=== PATIENT | male | born 1960 | race Caucasian/White ===

== ENCOUNTER 2020-08-18 07:13 | Outpatient (NON) | payer BC, SELFPAY ==
[2020-08-19 13:35] LABS: SARS-CoV-2 RNA PCR Negative
== END 2020-08-18 07:14 ==
LOC: ANHCOVIDDT 07:13
PROVIDERS: PCP Family Medicine; Visit Provider Family Medicine
DX: Z20.828 Contact with and (suspected) exposure to other viral communicable diseases (principal); R50.9 Fever, unspecified; R51.9 Headache, unspecified
CPT/HCPCS: 87635; C9803; U0003

== ENCOUNTER 2020-08-18 07:13 | Outpatient (NON) | payer BC, SELFPAY ==
[2020-08-18 14:26] LABS: Influenza Control Positive
== END 2020-08-18 07:14 ==
LOC: ANHCOVIDDT 07:13
PROVIDERS: PCP Family Medicine; Visit Provider Family Medicine
DX: R51.9 Headache, unspecified (principal); R50.9 Fever, unspecified
CPT/HCPCS: 87804

== ENCOUNTER 2020-08-23 16:56 | Emergency (ER) | payer BC, SELFPAY ==
[2020-08-23 17:58] VITALS: BP 192/65; PULSE 75; RESP 16; TEMP 36.6; O2SAT 98
[2020-08-23 18:42] LABS: Anion Gap 6 mmol/L (8-16); Blood Urea Nitrogen 20 mg/dL (9-20); Carbon Dioxide 36 mmol/L (22-30); Chloride 97 mmol/L (98-107); Estimated CRCL calculation 70 ml/min; Estimated Glomerular Filt Rate 48; Glucose 185 mg/dL (75-110); Potassium 3.6 mmol/L (3.4-5.0); Sodium 139 mmol/L (137-145)
[2020-08-23 19:01] LABS: Basophils Percent Auto 0.4 % (0.2-1.2); Eosinophils Absolute Auto 0.2 K/mm3 (0-0.3); Eosinophils Percent Auto 2.3 % (0-4.4); Hematocrit 40.5 % (42.0-52.0); Hemoglobin 13.5 g/dL (14.0-18.0); Immature Granulocyte Absolute 0.13 K/mm3 (0.00-0.031); Immature Granulocyte Percent A 1.4 % (0-0.5); Lymphocytes Absolute Auto 1.14 K/mm3 (0.9-3.2); Lymphocytes Percent Auto 12.4 % (18.3-44.2); Mean Corpuscular HGB Conc 33.3 g/dl (32-36); Mean Corpuscular Hemoglobin 29.1 pg (26-34); Mean Corpuscular Volume 87.3 fl (80-100); Mean Platelet Volume 10.3 fl (7.4-10.4); Monocytes Absolute Auto 0.8 K/mm3 (0.1-0.6); Monocytes Percent Auto 8.5 % (2.6-8.5); Neutrophils Absolute Auto 6.9 K/mm3 (1.3-6.7); Platelet Count Result 398 k/mm3 (150-375); Red Blood Count 4.64 M/mm3 (4.6-6.20); Red Cell Distribution Width 13.3 % (11.5-14.5); White Blood Count 9.2 K/mm3 (4.5-10.0)
[2020-08-23] MEDS: HYDROcodone/acetaminophen (*CRX) 5-325 MG TABLET 1 TAB PO (21:46)
[2020-08-23 22:06] LABS: D Dimer 1.66 ug/mL (<0.48)
[2020-08-23 22:14] VITALS: BP 184/89; PULSE 86; RESP 16; O2SAT 98
[2020-08-23] MEDS: ENOXAPARIN 120 MG/0.8 ML SYRINGE 136 MG SUB-Q (22:35)
--- NOTE | 2020-08-23 22:40 | ED.GENADULT ---
HPI - General Adult General Chief complaint: Extremity Problem,Nontraumatic Stated complaint: r leg swelling Time Seen by Provider: 08/23/20 20:57 History of Present Illness HPI narrative: Patient is a 60-year-old male who presents ER with right lower extremity edema. Increased over the last 2 to 3 days. Has increased in redness and warmth as well. Mildly tender. Reports he had a fever last week and was Covid negative. He has not been having persistent fever since then. No breaks in skin to his lower extremity. He has no chest pain or shortness of breath. No previous surgeries. No recent prolonged immobilization or surgery. Related Data Home Medications Medication Instructions Recorded Confirmed alpha lipoic acid 200 mg capsule mg PO 11/01/19 aspirin 81 mg tablet,delayed 81 mg PO DAILY 11/01/19 release diltiazem HCl 300 mg capsule,24 300 mg PO DAILY 11/01/19 hr,extended release insulin lispro 100 unit/mL See Rx Instructions SUB-Q 11/02/19 subcutaneous solution USEASDIRECTD hydrochlorothiazide 25 mg tablet 25 mg PO DAILY 03/09/20 Allergies Allergy/AdvReac Type Severity Reaction Status Date / Time No Known Allergies Allergy Verified 03/09/20 15:48 Review of Systems Review of Systems: All systems reviewed & are unremarkable except as noted in HPI and below Constitutional: Constitutional: Denies chills, Reports fever(s) and Denies weakness ENT: Denies nasal congestion and Denies sore throat Cardiovascular: Cardiovascular: Denies chest pain Respiratory: Respiratory: Denies cough and Denies dyspnea Musculoskeletal: Comments: Right lower extremity edema Integumentary/Breasts: Skin/Breast: Reports erythema PMFSH Past Medical History Medical History (Updated 08/23/20 @ 22:54 by Sunil Durbin MD) CKD (chronic kidney disease) Diabetes Dyslipidemia Hypertension Family History Family History Mother Family history of elevated blood lipids Other Family history of cardiovascular disease Family history of hypercholesterolemia Hypertension Social History Social History Smoking status: Never smoker Smoking end date: 10/13/02 Alcohol intake: current Exam Narrative: Exam Narrative: GENERAL: Well-appearing, well-nourished, and in no acute distress. HEAD: Normocephalic, atraumatic. CHEST: Clear to auscultation. No respiratory distress. HEART: Regular rate and rhythm. Normal peripheral pulses. EXTREMITIES: Normal range of motion. 2+ edema right lower extremity when compared to the left. SKIN: Warm, dry, red and warm right lower extremity proximal to the ankle and distal to the knee. NEURO: Alert and oriented x3. PSYCH: Normal mood and affect. Course Course Emergency Course: Patient given Lovenox x1 here. Has been scheduled for lower extremity ultrasound tomorrow morning. Discussed with Dr. French who is net web application developer for pts PCP. They will follow up results and rx anticoagulation if needed. Will d/c with abx to cover for cellulitis. Vital Signs Vital signs: Vital Signs Temperature 98 F 08/23/20 17:58 Pulse Rate 75 08/23/20 17:58 Respiratory Rate 16 08/23/20 17:58 Blood Pressure 192/65 H 08/23/20 17:58 Pulse Oximetry 98 08/23/20 17:58 Temperature 98 F 08/23/20 17:58 Pulse Rate 86 08/23/20 22:14 Respiratory Rate 16 08/23/20 22:14 Blood Pressure 184/89 H 08/23/20 22:14 Pulse Oximetry 98 08/23/20 22:14 Medical Decision Making Vital Signs Vital Signs: Vital Signs Temperature 98 F 08/23/20 17:58 Pulse Rate 75 08/23/20 17:58 Respiratory Rate 16 08/23/20 17:58 Blood Pressure 192/65 H 08/23/20 17:58 Pulse Oximetry 98 08/23/20 17:58 Temperature 98 F 08/23/20 17:58 Pulse Rate 86 08/23/20 22:14 Respiratory Rate 16 08/23/20 22:14 Blood Pressure 184/89 H 08/23/20 22:14 Pulse Oximetry 98 08/23/20
[2020-08-23 23:04] VITALS: BP 178/94; PULSE 87; RESP 18; TEMP 36.9; O2SAT 97
[2020-08-23] MEDS: CEPHALEXIN 500 MG CAPSULE PO (23:04)
== END 2020-08-23 23:05 | disposition home or self-care (01) ==
PROVIDERS: Emergency Medicine; Emergency Provider Emergency Medicine; PCP Family Medicine
DX: L03.115 Cellulitis of right lower limb (principal); R60.0 Localized edema; Z79.82 Long term (current) use of aspirin; Z79.4 Long term (current) use of insulin; E11.22 Type 2 diabetes mellitus with diabetic chronic kidney disease; I12.9 Hypertensive chronic kidney disease with stage 1 through stage 4 chronic kidney disease, or unspecified chronic kidney disease; N18.9 Chronic kidney disease, unspecified; E78.5 Hyperlipidemia, unspecified
CPT/HCPCS: 36415; 80048; 85025; 85380; 96372; 99283; A9270; J1650

== ENCOUNTER 2020-08-24 06:57 | Outpatient (CLI) | payer BC, SELFPAY ==
--- NOTE | ~2020-08-24 | US_ITS ---
EXAMINATION: US venous doppler LE RT EXAM DATE: 08/24/2020 07:32 INDICATION: Right leg edema. TECHNIQUE: Multiple grayscale, color flow and Doppler images of the right lower extremity deep venous system were obtained and reviewed. There is no prior study for comparison. FINDINGS: The right common femoral, femoral and profunda veins demonstrate normal color flow, respira tory variation, augmentation and compressibility. Compressibility, color flow confirmed within the r ight popliteal, posterior tibial, peroneal, and greater saphenous veins. IMPRESSION: 1. No right lower extremity deep venous thrombosis. Reviewed, dictated and finalized at location A. L MANAGER
== END 2020-08-24 06:58 | disposition home or self-care (01) ==
PROVIDERS: PCP Family Medicine; Visit Provider Family Medicine
DX: R60.0 Localized edema (principal)
CPT/HCPCS: 93971

== ENCOUNTER 2021-10-15 00:10 | Day surgery (SDC) | payer BC, SELFPAY ==
[2021-10-08 10:38] VITALS: BMI 39.5
--- NOTE | 2021-10-10 17:13 | PM.HPGS ---
History of Present Illness History of Present Illness Consent: Risks, benefits, and alternatives have been discussed and questions answered. Patient agrees to proceed with procedure. Chief complaint: neoplasm screening Narrative: Bashir Dodson is a 61 year old male referred for colon cancer screening Review of Systems Review of Systems: All systems reviewed & are unremarkable except as noted in HPI and below PMFSH Past Medical History Medical History CKD (chronic kidney disease) Diabetes Dyslipidemia Hepatitis C antibody test negative (08/04/21) Hypertension Family History Family History Mother Family history of elevated blood lipids Other Family history of cardiovascular disease Family history of hypercholesterolemia Hypertension Social History Social History Smoking status: Former smoker Tobacco type: cigarettes Smoking end date: 10/13/02 Alcohol intake: current Alcohol use details: Varies Living arrangements: with family Spiritual care concerns: No Meds Home Medications and Allergies Home Medications Medication Instructions Recorded Confirmed Type alpha lipoic acid 200 mg capsule 200 mg PO BID 11/01/19 10/08/21 History aspirin 81 mg tablet,delayed 81 mg PO DAILY 11/01/19 10/08/21 History release diltiazem HCl 300 mg capsule,24 300 mg PO DAILY 11/01/19 10/08/21 History hr,extended release hydrochlorothiazide 25 mg tablet 25 mg PO DAILY 03/09/20 10/08/21 History blood sugar diagnostic 07/30/21 07/30/21 History ezetimibe 10 mg-simvastatin 20 mg 1 tablet PO DAILY #90 tablet 07/30/21 10/08/21 Rx tablet insulin lispro 100 unit/mL See Rx Instructions SUB-Q 07/30/21 10/08/21 History subcutaneous solution USEASDIRECTD mecobalamin (vitamin B12) 1,000 500 mcg PO DAILY tablet 07/30/21 10/08/21 History mcg chewable tablet ramipril 10 mg capsule 10 mg PO DAILY #90 cap 07/30/21 10/08/21 Rx dapagliflozin [Farxiga] 5 mg PO DAILY 10/08/21 10/08/21 History levothyroxine 200 mcg PO DAILY 10/08/21 10/08/21 History Allergies Allergy/AdvReac Type Severity Reaction Status Date / Time No Known Allergies Allergy Verified 10/15/21 06:59 Exam Const: Nutritional Appearance: obese Resp: Auscultation: clear to auscultation bilaterally Cardio: Rate: regular rate Rhythm: regular rhythm GI: GI Palp: Yes Soft to palpation and No Tenderness to palpation present (GI) Assessment and Plan Assessment and plan (1) Colon cancer screening: Code(s): Z12.11 - Encounter for screening for malignant neoplasm of colon Status: Acute Assessment and Plan: Colonoscopy with possible biopsy or polypectomy or cautery or injection of substances.
[2021-10-15 07:00] VITALS: BP 178/77; PULSE 80; RESP 20; TEMP 36.3; O2SAT 96
[2021-10-15] MEDS: LACTATED RINGERS 1,000 ML 150 ML IV CONT (07:16)
--- NOTE | 2021-10-15 07:26 | WPDANESEPPF ---
Anes - Initial Pre Proc Eval Procedure: Operation Date: 10/15/21 08:00 Proposed Procedures p Screening Colonoscopy - Robert Byrd MD Date/Time: 10/15/21 07:26 Surgeon: Robert Byrd MD Pre Op Diagnosis: neoplasm screening Patient Data Age: 61 Gender: M Height: 1.85 m Weight: 145 kg Last Vital Signs Temp 36.3 C L 10/15/21 07:00 Pulse 80 10/15/21 07:00 Resp 20 10/15/21 07:00 BP 178/77 H 10/15/21 07:00 Pulse Ox 96 10/15/21 07:00 Allergies Allergy/AdvReac Type Severity Reaction Status Date / Time No Known Allergies Allergy Verified 10/15/21 06:59 Home Medications Medication Instructions Recorded Confirmed Type alpha lipoic acid 200 mg capsule 200 mg PO BID 11/01/19 10/08/21 History aspirin 81 mg tablet,delayed 81 mg PO DAILY 11/01/19 10/08/21 History release diltiazem HCl 300 mg capsule,24 300 mg PO DAILY 11/01/19 10/08/21 History hr,extended release hydrochlorothiazide 25 mg tablet 25 mg PO DAILY 03/09/20 10/08/21 History blood sugar diagnostic 07/30/21 07/30/21 History ezetimibe 10 mg-simvastatin 20 mg 1 tablet PO DAILY #90 tablet 07/30/21 10/08/21 Rx tablet insulin lispro 100 unit/mL See Rx Instructions SUB-Q 07/30/21 10/08/21 History subcutaneous solution USEASDIRECTD mecobalamin (vitamin B12) 1,000 500 mcg PO DAILY tablet 07/30/21 10/08/21 History mcg chewable tablet ramipril 10 mg capsule 10 mg PO DAILY #90 cap 07/30/21 10/08/21 Rx dapagliflozin [Farxiga] 5 mg PO DAILY 10/08/21 10/08/21 History levothyroxine 200 mcg PO DAILY 10/08/21 10/08/21 History Patient hx anesthesia problems: none Family hx anesthesia problems: none Results Review: All pre-operative results and documents have been reviewed as part of the pre-operative evaluation. [facility] Past Medical History Medical History (Updated 10/15/21 @ 07:26 by Charan Hilton MD) CKD (chronic kidney disease) Diabetes Dyslipidemia Hepatitis C antibody test negative (08/04/21) Hypertension Morbid obesity Family History Family History Mother Family history of elevated blood lipids Other Family history of cardiovascular disease Family history of hypercholesterolemia Hypertension Social History Social History Smoking status: Former smoker Tobacco type: cigarettes Smoking end date: 10/13/02 Alcohol intake: current Alcohol use details: Varies Living arrangements: with family Spiritual care concerns: No Anes - Eval Final PreProcedure Day of Procedure 10/15/21 07:26 Patient weight: morbidly obese Heart: regular rate and rhythm Lungs: clear to auscultation Airway: Mallampati scale class III Neurological: alert and oriented Last oral intake: >/= 8 hours ASA classification: III Emergent: no Anesthetic plan: proceed Anesthesia type and monitoring: general GIVS and standard monitoring Results Review: All pre-operative results and documents have been reviewed as part of the pre-operative evaluation. Informed Consent: The patient's anesthetic plan and its attendant risks and benefits were discussed with the patient/family/POA. Questions were solicited and answers provided to the satisfaction of the patient/family/POA.
[2021-10-15 08:11] VITALS: BP 136/70; PULSE 83; RESP 16; O2SAT 98
[2021-10-15 08:21] VITALS: BP 147/80; PULSE 68; RESP 18; O2SAT 98
[2021-10-15 08:31] VITALS: BP 138/68; PULSE 65; RESP 20; O2SAT 98
[2021-10-15 08:31] LABS: Glucose Point of Care 95 mg/dl (65-105)
== END 2021-10-15 08:43 | disposition home or self-care (01) ==
PROVIDERS: PCP Family Medicine; Visit Provider Internal Medicine Gastroenterology
PROC: 0DJD8ZZ Inspection of Lower Intestinal Tract, Via Natural or Artificial Opening Endoscopic (ICD-10-PCS; CPT 45378; principal; 2021-10-15 08:00)
DX: Z12.11 Encounter for screening for malignant neoplasm of colon (principal); K63.5 Polyp of colon; K57.30 Diverticulosis of large intestine without perforation or abscess without bleeding; Z79.82 Long term (current) use of aspirin; Z79.4 Long term (current) use of insulin; E03.9 Hypothyroidism, unspecified; E11.22 Type 2 diabetes mellitus with diabetic chronic kidney disease; I12.9 Hypertensive chronic kidney disease with stage 1 through stage 4 chronic kidney disease, or unspecified chronic kidney disease; N18.9 Chronic kidney disease, unspecified; E78.5 Hyperlipidemia, unspecified; Z87.891 Personal history of nicotine dependence; E66.01 Morbid (severe) obesity due to excess calories; Z68.41 Body mass index [BMI] 40.0-44.9, adult
CPT/HCPCS: 45380; 82948; 88305; J2704; J7120

== ENCOUNTER → 2022-04-20 07:26 | Outpatient (CLI) | payer BC, SELFPAY ==
--- NOTE | ~2022-04-20 | US_ITS ---
US right upper quadrant INDICATION: Abnormal levels of serum enzymes. PROCEDURE: Realtime right upper abdominal ultrasound. COMPARISON: No prior studies for comparison. FINDINGS: The pancreas is normal without focal mass or pancreatic ductal dilation. Liver echotexture is increased, consistent with fatty infiltration. There is normal directional flow in the portal ve in. The gallbladder is normal without stones, gallbladder wall thickening or pericholecystic fluid. Comm on bile duct measures 3 mm. No sonographic Corrales's sign. IMPRESSION: 1: Hepatic steatosis. Reviewed, dictated and finalized at location A. IMPRESSION: 1: Hepatic steatosis.
== END ==
PROVIDERS: PCP Family Medicine; Visit Provider Family Medicine
DX: R74.8 Abnormal levels of other serum enzymes (principal); K76.0 Fatty (change of) liver, not elsewhere classified
CPT/HCPCS: 76705

== ENCOUNTER 2025-08-19 01:23 | Day surgery (SDC) | payer BC, SELFPAY ==
--- OUTSIDE RECORDS SUMMARY | 2008-06-02 02:36 | XMS_ITS | Continuity of Care Document ---
Author Organization [facility] Address [address] [facility] [address] [facility] [address] [place] [address] Phone Care Team Providers Care Addressograph Operator Name Role Phone Norman Huertas Unavailable Unavailable Procedures Procedure Date Office/outpatient Visit, Est Advance Directives Directive Yes / No Effective Date File Name No Information Encounters Encounter Description Practice Location Reason(s) For Visit Diagnoses Date Provider Providers Copied on Encounter Office/outpat ient Visit, [facility], [address], [place], [place], [id number], [place] tel:[phone] [facility] No Information [address]. [address] , [address], [place], [address], [place]. tel:[phone] Family History Family Member Type Diagnosis Age At Onset No Information Payers Payer name Insurance type Covered democrat ID Authorfloriana hitesh(s) [facility] CI [id number] Social History Type Description Quantity Date Captured Comments Sex Male Smoking Status No Information Chief Complaint And Reason For Visit No Information Reason For Referral Reason For Referral No Information History Of Present Illness Encounter Date Complaint History Of Prese nt Illness No Information Functional Status Date Functional Assessmen t No Information Instructions Date Instruction Additional Infor mation No Information Assessments Type Assessment Date No Information Patient Care Teams Name Effective Dates (start - stop) Status Members No Information
--- OUTSIDE RECORDS SUMMARY | 2025-08-19 01:26 | XMS_ITS | Encounter Summary ---
Author Organization [facility] Address [address] [place] [address] Phone Care Team Providers Care Bench Machine Operator Name Role Phone Rosa Linder DO Primary Care Provider [phone] Eron Valiente MD Unavailable [phone] Encounter Details Date Type Department Care Team (Latest Contact Info) Description 02/16/2022 Orders Only [place] IM EML Scanning, Provider Social History Tobacco Use Types Packs/Day Years Used Date Smoking Tobacco: Former Smokeless Tobacco: Never Sex and Gender Information Value Date Recorded Sex Assigned at Not on file 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 Gender Identity Not on file Sexual Orientation Not on file documented as of this encounter Plan of Treatment Not on file documented as of this encounter Procedures Procedure Name Priority Date/Time Associated Diagnosis Comments SCAN - LABS 02/16/2022 documented in this encounter Results * SCAN - LABS (02/16/2022) us Provider Scanning Final Result documented in this encounter Visit Diagnoses Not on filedocumented in this encounter Care Teams Bench Machine Operator Relationship Specialty Start Date End Date Rosa Linder DO PCP - General Family Medicine 03/04/22 Eron Valiente MD [address] DE[facility] [address] [place] [address] Surgeon Ophthalmology 08/15/25 documented as of this encounter
--- OUTSIDE RECORDS SUMMARY | 2025-08-19 01:26 | XMS_ITS | Encounter Summary ---
Author Organization [facility] Address [address] [place] [address] Phone Care Team Providers Care Spoon Maker Name Role Phone Rosa Linder DO Primary Care Provider [phone] Eron Valiente MD Unavailable [phone] Encounter Details Date Type Department Care Team (Latest Contact Info) Description 04/26/2023 Orders Only [place] IM EML Scanning, Provider Social History Tobacco Use Types Packs/Day Years Used Date Smoking Tobacco: Former Smokeless Tobacco: Never Sex and Gender Information Value Date Recorded Sex Assigned at Not on file 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 Gender Identity Not on file Sexual Orientation Not on file documented as of this encounter Plan of Treatment Not on file documented as of this encounter Procedures Procedure Name Priority Date/Time Associated Diagnosis Comments SCAN - LABS 04/26/2023 documented in this encounter Results * SCAN - LABS (04/26/2023) us Provider Scanning Final Result documented in this encounter Visit Diagnoses Not on filedocumented in this encounter Care Teams Spoon Maker Relationship Specialty Start Date End Date Rosa Linder DO PCP - General Family Medicine 03/04/22 Eron Valiente MD [address] DEPT OPHTHALMOLOGY, [facility] [address] [place] [address] Surgeon Ophthalmology 08/15/25 documented as of this encounter
--- OUTSIDE RECORDS SUMMARY | 2025-08-19 01:26 | XMS_ITS | Encounter Summary ---
Author Organization [facility] Address [address] [place] [address] Phone Care Team Providers Care A Class Lineman Name Role Phone Rosa Linder DO Primary Care Provider [phone] Eron Valiente MD Unavailable [phone] Encounter Details Date Type Department Care Team (Latest Contact Info) Description 10/03/2023 Orders Only [place] IM EML Scanning, Provider Social History Tobacco Use Types Packs/Day Years Used Date Smoking Tobacco: Former Smokeless Tobacco: Never Sex and Gender Information Value Date Recorded Sex Assigned at Not on file 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 Gender Identity Not on file Sexual Orientation Not on file documented as of this encounter Plan of Treatment Not on file documented as of this encounter Procedures Procedure Name Priority Date/Time Associated Diagnosis Comments SCAN - LABS 10/03/2023 documented in this encounter Results * SCAN - LABS (10/03/2023) us Provider Scanning Final Result documented in this encounter Visit Diagnoses Not on filedocumented in this encounter Care Teams A Class Lineman Relationship Specialty Start Date End Date Rosa Linder DO PCP - General Family Medicine 03/04/22 Eron Valiente MD [address] DEPT OPHTHALMOLOGY, [facility] [address] [place] [address] Surgeon Ophthalmology 08/15/25 documented as of this encounter
--- OUTSIDE RECORDS SUMMARY | 2025-08-19 01:26 | XMS_ITS | Clinical Summary ---
Author Organization [facility] 2 Address [address] [facility] [place] [address] Care Team Providers Care Director Agricultural Services Name Role Phone Vannesamicha Rosa Mendoza DO Primary Care Provider [phone] Eron Valiente MD Unavailable [phone] Allergies Active Allergy Reactions Criticality Noted Date Comments Gluten Diarrhea,Swelling Medium 08/30/2020 Medications alpha lipoic acid 200 mg capsuleIndicatio ns:supplement Take 1 capsule by mouth 2 (two) times a day 05/29/20 10 Active aspirin 81 mg tabletIndication s:prevention of thrombosis Take 1 tablet (81 mg total) by mouth every morning 12/31/19 13 Active levothyroxine (SYNTHROID) 175 mcg tabletIndication s:hypothyroidism Take 1 tablet (175 mcg total) by mouth every morning Currently takes 175mcg in the morning, will be tapering down to 150mcg 05/29/20 10 Active ezetimibe-simvas tatin (VYTORIN) 10-20 mg per tabletIndication s:hyperlipidemia Take 1 tablet by mouth nightly 05/12/20 06 Active cyanocobalamin (Vitamin B-12) 1,000 mcg tabletIndication s:Prevention of Vitamin B12 Deficiency Take 0.5 tablets (500 mcg total) by mouth every evening 05/25/20 19 Active cholecalciferol, vitamin D3, (VITAMIN D3 ORAL)Indications :supplement Take 5,000 Units by mouth every morning Active glucagon (Gvoke PFS 1-Pack Syringe) 1 mg/0.2 mL syringeIndicatio ns:Type 1 diabetes mellitus with other specified complication Inject 1 mg under the skin daily as needed (as directed for severe lows) 0.2 mL 1 12/09/19 24 Active Additional Information Patient taking differently:1 mg subcutaneous Daily PRN, as directed for severe lows,Has not used , Indications: hypoglycemic disorder, Informant: Self, Reported on 08/15/2025 TRESIBA 200 unit/mL (3 mL) pen for injection Inject 26 units, Once per day when off of insulin pump. TDD 26 units 3 mL 12/09/19 24 Active Additional Information Patient taking differently: 26 Units subcutaneous Nightly PRN, Inject 26 units, Once per day when off of insulin pump. TDD 26 units, Indications: type 2 diabetes mellitus, Informant: Self, Reported on 08/15/2025 HumaLOG 100 unit/mL vial for injectionIndicat ions:Type 1 diabetes mellitus with complication (HCC) INJECT 150 UNITS DAILY VIA INSULIN PUMP 140 mL 3 12/17/19 25 Active Additional Information Patient taking differently: subcutaneous Continuous (implanted device), INJECT 150 UNITS DAILY VIA INSULIN PUMP;INSULIN PUMP SUMMARY The patient uses an insulin pump on an outpatient basis. Pump information is as follows: 1. Pump brand: [employer]or[employer]ronic 2. Basal insulin regimen on normal days: Patient has an autotitrating pump with a continuous glucose monitor (CGM)..3. Patient insulin bolus is based on Continuous Glucose Monitoring (CGM).4. Insulin pump/CGM site connection is located Leg. Please also document this in Avatar.5. Prescribing physician: Dr. Portia Han , Indications: type 2 diabetes mellitus, Informant: Self, Reported on 08/15/2025 Accu-Chek Guide test strips stripIndications :Type 1 diabetes mellitus with other specified complication Use to test blood sugar 3 times per day. 300 strip 3 03/04/20 25 Active potassium chloride ER 20 mEq CR tabletIndication s:supplement Take 1 tablet (20 mEq total) by mouth every morning 05/30/20 25 Active ramipriL (ALTACE) 10 mg capsuleIndicatio ns:chronic kidney disease with albuminuria Take 1 capsule (10 mg total) by mouth 2 (two) times a day 06/15/20 25 Active Additional Information Patient taking differently:10 mg oral 2 times daily,Indications: chronic kidney disease with albuminuria, hypertension, Informant: Self, Reported on 08/15/2025 erythromycin (ILOTYCIN) ophthalmic ointment Place on incisions three times per day and in operative eye as needed. 3.5 g 3 08/15/20 25 Active Active Problems Problem Noted Date Diagnosed Date Trichiasis of right upper eyelid 07/12/[address] 09/02/2022 Venous incompetence 10/30/2020 Assessment & Plan (03/09/2021 12:43 PM CDT): Patient had significant dilation and reflux of the right great saphenous vein which is now bladed. I told him to continue to wear his compression stockings and he can follow up as needed. Assessment & Plan (01/29/2021 1:25 PM CDT): Patient is status post EVLT of the right great saphenous vein. He is having some relief from having this done and is still wearing his compression stockings. I will have him follow up in 1 month and if he is still having significant swelling of the right lower extremity then will plan to get him a lymphedema pump to aid in keeping his right leg less swollen. He is to continue wearing his compression stockings daily and keep his leg elevated as much as he possibly can. Assessment & Plan (10/30/2020 12:11 PM WEBSPHERE DEVELOPER): Patient has right lower extremity swelling and has been compliant with compression therapy over the last several months as given to him by his PCP. He does have dilation and reflux of the right great saphenous vein. Plan will be for EVLT of the right lower extremity which was discussed with the patient. I told him that this may not completely make the leg swelling go away as he may also have a component of lymphedema from longstanding venous reflux. Plan will 1st before the EVLT and compression therapy and will re-evaluate to see if the patient needs a lymphedema pump. He understands and is willing to proceed. Venous stasis 10/30/2020 Assessment & Plan (03/09/2021 12:42 PM CDT): Patient had venous stasis changes in his leg which are currently stable and now his great saphenous vein has been ablated. Assessment & Plan (10/30/2020 12:10 PM WEBSPHERE DEVELOPER): Patient has venous stasis changes of the right lower extremity along with right leg swelling. Edema of right lower leg 10/30/2020 Assessment & Plan (10/30/2020 12:09 PM WEBSPHERE DEVELOPER): Patient has edema of the right lower leg over the last several months and has been compliant daily with compression therapy. Mixed hyperlipidemia 10/30/2020 Assessment & Plan (03/09/2021 12:42 PM CDT): Followed by his PCP and on a statin at this time. Assessment & Plan (10/30/2020 12:12 PM WEBSPHERE DEVELOPER): Followed by his PCP and on a statin at this time Cellulitis of right leg 08/30/2020 Edema 02/25/2017 CRD (chronic renal disease), stage II 11/19/2011 Proteinuria 11/19/2011 Vitamin D deficiency disease 11/19/2011 Current smoker 02/26/2011 Microalbuminuria 01/18/2008 Overview (01/22/2018): Description: 24 hour urine 01/08/08 227.8 mgs and clearance of 149 08/06/08 383 mgs in 24 hours showing some progression. Obesity 05/12/2006 Overview (01/22/2018): Description: modest Assessment & Plan (01/29/2021 1:26 PM CDT): Patient has obesity due to excess caloric intake. He would do well with decreasing his calorie intake as well as increasing his exercise. This will also help immensely with his leg swelling. Hypertension 05/12/2006 Assessment & Plan (03/09/2021 12:43 PM CDT): Followed by his PCP and controlled on his current medications. Assessment & Plan (01/29/2021 1:25 PM CDT): Followed by his PCP and controlled on his current medications. Assessment & Plan (10/30/2020 12:11 PM WEBSPHERE DEVELOPER): Followed by his PCP and controlled on his current medications at this time. Hypothyroidism 05/12/2006 Assessment & Plan (01/29/2021 1:25 PM CDT): Followed by his PCP and controlled on Synthroid. Type 1 diabetes mellitus 05/12/2006 Assessment & Plan (03/09/2021 12:43 PM CDT): Followed by his PCP and controlled on his current medications. Assessment & Plan (01/29/2021 1:25 PM CDT): Followed by his PCP and controlled on his current insulin regimen. Assessment & Plan (10/30/2020 12:11 PM WEBSPHERE DEVELOPER): Followed by his PCP and controlled on his current insulin regimen. Resolved Problems Problem Noted Date Diagnosed Date Resolved Date Stage III chronic kidney disease 02/27/2016 09/15/2019 Encounters Date Type Department Care Team Description 08/15/2025 1:30 PM WEBSPHERE DEVELOPER - 08/15/2025 2:20 PM WEBSPHERE DEVELOPER Surgery [facility] Operating Room [address] [place] [address] Eron Valiente MD Right upper lid reconstruction 08/15/2025 12:59 PM WEBSPHERE DEVELOPER Anesthesia Event [facility] Operating Room [address] [facility] [place] [address] Med Krishna MD 08/15/2025 9:56 AM WEBSPHERE DEVELOPER - 08/15/2025 2:29 PM WEBSPHERE DEVELOPER Hospital Encounter [facility] Operating Room [address] [facility] [facility] [place] [address] Eron Valiente MD Trichiasis of right upper eyelid Discharge Disposition: Discharge to home or self care 08/12/2025 Telephone [facility] Medicine Ophthalmology [address], [address] [place] [address] Eron Valiente MD 07/12/2025 10:30 AM CDT Office Visit [facility] Ophthalmology [address], [address] [place] [address] Eron Valiente MD Trichiasis of right upper eyelid (Primary Dx); Deformity of eyelid 06/15/2025 3:00 PM CDT Office Visit [facility] Nephrology Formerly [facility] 5[address] [place] [address] [place] [address] Stage 2 chronic kidney disease (Primary Dx) from Last 3 Months Immunizations Immunization Administration Dates Next Due Influenza, Quadrivalent, Rec ombinant, Egg Free, Preservative Free, Intramuscular 06/29/2019 Influenza, Split 10/13/2017 Surgical History Surgery Date Site/Laterality Comments VARICOSE VEIN SURGERY 12/28/2020 Right EVLT CATARACT EXTRACTION W/ INTRAOCULAR LENS IMPLANT 10/13/2024 - 10/12/2025 Bilateral HERNIA REPAIR 10/13/2014 - 10/12/2015 TONSILLECTOMY 10/13/2004 - 10/12/2005 RECONSTRUCTION EYELID 08/15/2025 Eye/Right Procedure: Right upper lid reconstruction; Surgeon: Eron Valiente MD; Location: [facility] OPERATING ROOM; Service: Ophthalmology; Laterality: Right; Medical History Medical History Date Comments Tobacco abuse counseling Encount er for smoking cessation counseling - (Added by RENITA Conv) Diabetes mellitus Thyroid disease Hypertension Chronic kidney disease Diabetes mellitus type I Family History Medical History Relation Name Comments Diabetes Sister Family history of diabetes mellitus - (Added by RENITA Conv) Anesthesia problems Neg Hx Glaucoma Neg Hx Macular degeneration Neg Hx Relation Name Status Comments Sister Social History Tobacco Use Types Packs/Day Years Used Date Smoking Tobacco: Former Cigarettes Q uit: 2004 Smokeless Tobacco: Never Tobacco Cessation:Counseling Given: Not Answered Alcohol Use Standard Drinks/Week Comments Yes 0 (1 standard drink = 0.6 oz pur e alcohol) AUDIT-C Answer Date Recorded Q1: How often do you have a drink containing alc ohol? Monthly or less 08/15/2025 Q2: How many drinks containi ng alcohol do you have on a typical day when you are drinking? 3 or 4 08/15/2025 Q3: How often do you have si x or more drinks on one occasion? Never 08/15/2025 Personal Safety Answer Date Recorded Have you ever been in or are you currently in a harmful physical or emotional relationship or is someone making you feel afraid or unsafe? Denies 08/15/2025 Sex and Gender Information Value Date Recorded Sex Assigned at Not on file Legal Sex Male 2:55 AM WEBSPHERE DEVELOPER Gender Identity Not on file Sexual Orientation Not on file Last Filed Vital Signs Vital Sign Reading Time Taken Comments Blood Pressure 145/65 08/15/2025 2:25 PM WEBSPHERE DEVELOPER Pulse 55 08/15/2025 2:25 PM WEBSPHERE DEVELOPER Temperature 36.2 C (97.2 F) 08/15/2025 1:37 PM WEBSPHERE DEVELOPER Respiratory Rate 25 08/15/2025 2:25 PM WEBSPHERE DEVELOPER Oxygen Saturation 99% 08/15/2025 2:25 PM WEBSPHERE DEVELOPER Inhaled Oxygen Concentration - - Weight 115.7 kg (255 lb) 08/15/2025 11:27 AM WEBSPHERE DEVELOPER Height 185.4 cm (6' 1) 08/15/2025 11:27 AM WEBSPHERE DEVELOPER Body Mass Index 33.64 08/15/2025 11:27 AM WEBSPHERE DEVELOPER Plan of Treatment Health Maintenance Due Date Last Done Comments Colon Cancer Screening-Colonoscopy 1961 Depression Screening 1961 Hepatitis C Screening 1961 Prostate Cancer Screening-PSA 1961 Dilated Eye Exam 1971 Hepatitis B Screening 1979 Regular Well Visit/Exam 18-64 1979 Pneumococcal vaccine <65 (1 of 2 - PCV) 1980 Zoster Vaccine (1 of 2) 2011 Lipid Panel 03/17/2024 03/17/2023, 06/09/2021 TSH Level 03/17/2024 03/17/2023, 06/09/2021 Influenza Vaccine (#1) 2025 , 06/29/2019, 10/13/2017, Additional history exists Foot Exam 08/30/2025 08/30/2024 Hemoglobin A1C 09/04/2025 03/04/2025, 08/13, 2024, Additional history exists Albumin Creatinine Ratio, Urine 06/06/2026 06/06/2025, 03/04/2024, 10/03/2023, Additional history exists eGFR 06/06/2026 06/06/2025, 02/11, 09/23/2022, Additional history exists DTaP/Tdap/Td Vaccine (2 - Td or Tdap) 02/13/2032 02/12/2022 Goals Goal Patient Goal Type Associated Problems Recent Progress Patient-Stated? Author Autogenerat ed Goal Care Plan Autogenerated Problem No Elsie Rios RN Procedures Procedure Name Priority Date/Time Associated Diagnosis Comments POCT GLUCOSE DEVICE Routine 08/15/2025 2 :05 PM WEBSPHERE DEVELOPER POCT GLUCOSE DEVICE Routine 08/15/2025 1 :38 PM WEBSPHERE DEVELOPER RECONSTRUCTION EYELID. 1:02 PM WEBSPHERE DEVELOPER Trichiasis of right upper eyelid POCT GLUCOSE DEVICE Routine 08/15/2025 1 1:15 AM WEBSPHERE DEVELOPER COPY RECEIVED FROM Routine 06/06/2025 3: 35 PM CDT COPY(IES) SENT TO: Routine 06/06/2025 3: 35 PM CDT ALBUMIN CREATININE RATIO, URINE Routine 06/06/2025 3:35 PM CDT Hypophosphatemia Stage 3a chronic kidney disease (HCC) Hypertension, unspecified type Renal osteodystrophy Persistent proteinuria Vitamin D deficiency disease Type 1 diabetes mellitus with other specified complication PROTEIN / CREATININE RATIO, URINE, RANDOM Routine 06/06/2025 3:35 PM CDT Hypophosphatemia Stage 3a chronic kidney disease (HCC) Hypertension, unspecified type Renal osteodystrophy Persistent proteinuria Vitamin D deficiency disease Type 1 diabetes mellitus with other specified complication VITAMIN D 25 HYDROXY Routine 06/06/2025 3:35 PM CDT Hypophosphatemia Stage 3a chronic kidney disease (HCC) Hypertension, unspecified type Renal osteodystrophy Persistent proteinuria Vitamin D deficiency disease Type 1 diabetes mellitus with other specified complication PTH Routine 06/06/2025 3:35 PM CDT Hypophosphatemia Stage 3a chronic kidney disease (HCC) Hypertension, unspecified type Renal osteodystrophy Persistent proteinuria Vitamin D deficiency disease Type 1 diabetes mellitus with other specified complication RENAL FUNCTION PANEL Routine 06/06/2025 3:35 PM CDT Hypophosphatemia Stage 3a chronic kidney disease (HCC) Hypertension, unspecified type Renal osteodystrophy Persistent proteinuria Vitamin D deficiency disease Type 1 diabetes mellitus with other specified complication CBC WITH AUTO DIFFERENTIAL Routine 06/06/2025 3:35 PM CDT Hypophosphatemia Stage 3a chronic kidney disease (HCC) Hypertension, unspecified type Renal osteodystrophy Persistent proteinuria Vitamin D deficiency disease Type 1 diabetes mellitus with other specified complication REFLEXIVE URINE CULTURE Routine 06/06/2025 3:35 PM CDT URINALYSIS AND REFLEX TO MICROSCOPIC AND CULTURE Routine 06/06/2025 3:35 PM CDT Hypophosphatemia Stage 3a chronic kidney disease (HCC) Hypertension, unspecified type Renal osteodystrophy Persistent proteinuria Vitamin D deficiency disease Type 1 diabetes mellitus with other specified complication POCT HEMOGLOBIN A1C Routine 03/04/2025 8 :29 AM CDT Type 1 diabetes mellitus with complication (HCC) LIPID PANEL Routine 03/17/2023 7:48 AM CDT TSH Routine 03/17/2023 7:48 AM CDT from Last 3 Months or Most Recently Relevant to Health Maintenance Results * POCT glucose (08/15/2025 2:05 PM WEBSPHERE DEVELOPER) [facility] Glucose, POC 100 70 - 199 mg/dL Comment: Interpretive Data Glucose is assumed to be non-fasting. Fasting Glucose reference ranges are: 0 - 150 years: 70 mg/dL - 99 mg/dL Current interpretive data was last revised on 2014. POC Device Number [id number] [facility] Blood 08/15/2025 2:05 PM WEBSPHERE DEVELOPER 08/15/2025 2:05 PM WEBSPHERE DEVELOPER Eron Valiente MD LAB POCT ORDERABLES - DE VICE Final Result Performing Organization Address [facility] Phone Number ALEXIS VIGILCH [address] [facility] [place] [place] [address] * (ABNORMAL) POCT glucose (08/15/2025 1:38 PM WEBSPHERE DEVELOPER) Glucose, POC 56(L) 70 - 199 mg/dL Comment: Interpretive Data Glucose is assumed to be non-fasting. Fasting Glucose reference ranges are: 0 - 150 years: 70 mg/dL - 99 mg/dL Current interpretive data was last revised on 2014. POC Device Number [id number] [facility] Blood 08/15/2025 1:38 PM WEBSPHERE DEVELOPER 08/15/2025 1:38 PM WEBSPHERE DEVELOPER Eron Valiente MD LAB POCT ORDERABLES - DE VICE Final Result Performing Organization Address [facility] Phone Number ALEXIS SENIORWCH [address] [facility] [place] [place] [address] * POCT glucose (08/15/2025 11:15 AM WEBSPHERE DEVELOPER) Glucose, POC 81 70 - 199 mg/dL Comment: Interpretive Data Glucose is assumed to be non-fasting. Fasting Glucose reference ranges are: 0 - 150 years: 70 mg/dL - 99 mg/dL Current interpretive data was last revised on 2014. POC Device Number [id number] A[facility] CORDON Blood 08/15/2025 11:1 5 AM WEBSPHERE DEVELOPER 08/15/2025 11:15 AM WEBSPHERE DEVELOPER Eron Valiente MD LAB POCT ORDERABLES - DE VICE Final Result Performing Organization Address [facility] Phone Number ALEXIS SENIORCH [address] [facility] [address] * Copy received from (06/06/2025 3:35 PM CDT) Copy Rec'd from: [facility] Comment: [facility] - INTERNAL MED-RENAL CB [id number] [address] 06/06/2025 3:35 PM CDT 06/06/2025 3:36 PM CDT Roberto Dumas MD LAB BLOOD ORDERABLES Fin al Result Performing Organization Address City/[facility]/ZIP Co de Phone Number [facility] * COPY(IES) SENT TO: (06/06/2025 3:35 PM CDT) COPY(IES) SENT TO: [facility] Comment: [facility] INTERNAL MED RENAL CB [id number] [address] 06/06/2025 3:35 PM CDT 06/06/2025 3:36 PM CDT Roberto Dumas MD LAB BLOOD ORDERABLES Fin al Result Performing Organization Address [facility] Co de Phone Number [facility] * REFLEXIVE URINE CULTURE (06/06/2025 3:35 PM CDT) Urine culture [facility] Comment:NO CULTURE INDICATED 06/06/2025 3:35 PM CDT 06/06/2025 3:36 PM CDT Roberto Dumas MD LAB MICROBIOLOGY - GENER AL ORDERABLES Final Result Performing Organization Address City/[facility]/ZIP Co de Phone Number [facility] [address] [place] [address] * (ABNORMAL) Urinalysis reflex to microscopic and culture Urine, clean voided (06/06/2025 3:35 PM CDT) Color, ur YELLOW YELLOW [facility] Appearance, ur TURBID(A) CLEAR [facility] Specific gravity 1.030 1.001 - 1.035 [facility] pH, ur 6.0 5.0 - 8.0 [facility] Glucose, ur NEGATIVE NEGATIVE [facility] Bilirubin, ur 1+(A) NEGATIVE [facility] Comment: Presumptive positive bilirubin. Consider confirmation by serum bilirubin if clinically indicated. Ketones, ur NEGATIVE NEGATIVE [facility] Blood, ur TRACE(A) NEGATIVE [facility] Protein, ur, quant 2+(A) NEGATIVE [facility] Nitrites, ur POSITIVE(A) NEGATIVE [facility] Leukocyte esterase, ur NEGATIVE NEGATIVE [facility] WBC, ur 0-5 < OR = 5 /HPF [facility] RBC, ur 0-2 < OR = 2 /HPF [facility] Epithelial cells, squamous, ur 0-5 < OR = 5 /HPF [facility] Bacteria, ur, quant MANY(A) NONE SEEN /HPF [facility] Calcium oxalate crystals, ur FEW NONE OR FEW /HPF [facility] Hyaline cast NONE SEEN NONE SEEN /LPF [facility] Note [facility] Comment: This urine was analyzed for the presence of WBC, RBC, bacteria, casts, and other formed elements. Only those elements seen were reported. Urine, clean voided 06/06/2025 3:35 PM CDT 06/06/2025 3:36 PM CDT us Roberto Dumas MD LAB MICROBIOLOGY - ELIZABETH AL ORDERABLES Final Result [facility] [address] [address] * (ABNORMAL) CBC with auto differential (06/06/2025 3:35 PM CDT) WBC 4.1 3.8 - 10.8 Thousand/u L [facility] RBC, POC 4.36 4.20 - 5.80 Million/uL [facility] Hgb 12.9(L) 13.2 - 17.1 g/dL [facility] Hct 40.1 38.5 - 50.0 % [facility] MCV 92.0 80.0 - 100.0 fL [facility] MCH 29.6 27.0 - 33.0 pg [facility] MCHC 32.2 32.0 - 36.0 g/dL [facility] Comment: For adults, a slight decrease in the calculated MCHC value (in the range of 30 to 32 g/dL) is most likely not clinically significant; however, it should be interpreted with caution in correlation with other red cell parameters and the patient's clinical condition. Rdw 13.9 11.0 - 15.0 % [facility] Platelets 237 140 - 400 Thousand/u L [facility] MPV 11.2 7.5 - 12.5 fL [facility] Neutrophils, abs 2,444 1,500 - 7,800 cells/uL [facility] Lymphocytes, abs 947 850 - 3,900 cells/uL [facility] Monocyte abs 480 200 - 950 cells/uL [facility] Eosinophils, abs 189 15 - 500 cells/uL [facility] Basophils, abs 41 0 - 200 cells/uL [facility] Neutrophils 59.6 % [facility] Lymphocyte pct 23.1 % [facility] Monocytes 11.7 % [facility] Eosinophils 4.6 % [facility] Basophils 1.0 % [facility] Blood 06/06/2025 3:35 PM CDT 06/06/2025 3:36 PM CDT us Roberto Dumas MD LAB BLOOD ORDERABLES Fin al Result [facility] [address] [place] [address] * (ABNORMAL) Protein / creatinine ratio, urine, random (06/06/2025 3:35 PM CDT) Creatinine, ur 501(H) 20 - 320 mg/dL [facility] Comment: Verified by repeat analysis. Protein/creati nine ratio 248(H) 25 - 148 mg/g creat [facility] Protein/Creati nine Ratio 0.248(H) 0.025 - 0.148 mg/mg creat [facility] Protein, ur, quant 124(H) 5 - 25 mg/dL [facility] Urine 06/06/2025 3:35 PM CDT 06/06/2025 3:36 PM CDT Roberto Dumas MD LAB URINE ORDERABLES Fin al Result Performing Organization Address [facility] de Phone Number [facility] [address] [place] [address] * (ABNORMAL) Albumin Creatinine Ratio, Urine (06/06/2025 3:35 PM CDT) Creatinine, ur 501(H) 20 - 320 mg/dL [facility] Comment: Verified by repeat analysis. Microalbumin, ur 39.1 See Note: mg/dL [facility] Comment: Reference Range: Reference Range Not established Verified by repeat analysis. Microalbumin/creat ratio 78(H) <30 mg/g creat [facility] Comment: The ADA defines abnormalities in albumin excretion as follows: Albuminuria Category Result (mg/g creatinine) Normal to Mildly increased <30 Moderately increased 30-299 Severely increased > OR = 300 The ADA recommends that at least two of three specimens collected within a 3-6 month period be abnormal before considering a patient to be within a diagnostic category. Urine 06/06/2025 3:35 PM CDT 06/06/2025 3:36 PM CDT Roberto Dumas MD LAB URINE ORDERABLES Fin al Result Performing Organization Address [facility] Co de Phone Number [employer] [facility] [address] [place] [address] * Vitamin D 25 hydroxy (06/06/2025 3:35 PM CDT) Vitamin D 25-OH 66 30 - 100 ng/mL [facility] Comment: Vitamin D Status 25-OH Vitamin D: Deficiency: <20 ng/mL Insufficiency: 20 - 29 ng/mL Optimal: > or = 30 ng/mL For 25-OH Vitamin D testing on patients on D2-supplementation and patients for whom quantitation of D2 and D3 fractions is required, the QuestAssureD(TM) 25-OH VIT D, (D2,D3), LC/MS/MS is recommended: order code 17730 (patients >2yrs). See Note 1 Note 1 For additional information, please refer to http://education.[employer]/faq/AKJ167 (This link is being provided for informational/ educational purposes only.) Blood 06/06/2025 3:35 PM CDT 06/06/2025 3:36 PM CDT Roberto Dumas MD LAB BLOOD ORDERABLES Fin al Result Performing Organization Address [facility] de Phone Number [employer] [address] [place] [address] * PTH (06/06/2025 3:35 PM CDT) Parathyroid hormone, intact 30 16 - 77 pg/mL [facility] Comment: Interpretive Guide Intact PTH Calcium ------- Normal Parathyroid Normal Normal Hypoparathyroidism Low or Low Normal Low Hyperparathyroidism Primary Normal or High High Secondary High Normal or Low Tertiary High High Non-Parathyroid Hypercalcemia Low or Low Normal High Blood 06/06/2025 3:35 PM CDT 06/06/2025 3:36 PM CDT Roberto Dumas MD LAB BLOOD ORDERABLES Fin al Result Performing Organization Address City/[facility]/ZIP Co de Phone Number [employer] [address] [place] [address] * (ABNORMAL) Renal function panel (06/06/2025 3:35 PM CDT) [facility] Glucose 80 65 - 99 mg/dL [facility] Comment: Fasting reference interval BUN 13 7 - 25 mg/dL [facility] Creatinine 0.96 0.70 - 1.35 mg/dL [facility] eGFR 88 > OR = 60 mL/min/1.7 3m2 [facility] BUN/creat ratio SEE NOTE: 6 - 22 (calc) [facility] Comment: Not Reported: BUN and Creatinine are within reference range. Sodium 141 135 - 146 mmol/L [facility] Potassium, pl 3.3(L) 3.5 - 5.3 mmol/L [facility] Chloride 105 98 - 110 mmol/L [facility] CO2 30 20 - 32 mmol/L [facility] Calcium 8.9 8.6 - 10.3 mg/dL [facility] Phosphorus, sr 3.0 2.5 - 4.5 mg/dL [facility] Albumin 3.6 3.6 - 5.1 g/dL [facility] Blood 06/06/2025 3:35 PM CDT 06/06/2025 3:36 PM CDT Roberto Dumas MD LAB BLOOD ORDERABLES Fin al Result [facility] [address] [place] [address] * (ABNORMAL) POCT hemoglobin A1c (03/04/2025 8:29 AM CDT) [facility] Hemoglobin A1C, POC 5.9(A) 4.0 - 5.6 % Blood 03/04/2025 8:29 AM CDT Aminta Han MD POINT OF CARE TEST ORDERABLES Final Result * (ABNORMAL) TSH (03/17/2023 7:48 AM CDT) [facility] TSH 0.38(L) 0.40 - 4.50 mIU/L [facility] 03/17/2023 7:48 AM CDT 03/17/2023 7:50 AM CDT Narrative [facility] - 03/18/2023 3:25 AM CDT FASTING:YES FASTING: YES us Aminta Han MD LAB BLOOD ORDERABLES Final Re sult [facility] [address] [place] [address] * Lipid panel (03/17/2023 7:48 AM CDT) [facility] Cholesterol 131 <200 mg/dL [facility] HDL 44 > OR = 40 mg/dL [facility] Triglycerides 89 <150 mg/dL [facility] LDL 70 mg/dL (calc) [facility] Comment: Reference range: <100 Desirable range <100 mg/dL for primary prevention; <70 mg/dL for patients with CHD or diabetic patients with > or = 2 CHD risk factors. LDL-C is now calculated using the Gerard-Biggs calculation, which is a validated novel method providing better accuracy than the Friedewald equation in the estimation of LDL-C. Gerard SS et al. DENISE. 2013;310(19): 3197-3540 (http://education.[employer]/faq/BNA646) Chol/HDL ratio 3.0 <5.0 (calc) [facility] Non-HDL, (LDL+VLDL) 87 <130 mg/dL (calc) [facility] Comment: For patients with diabetes plus 1 major ASCVD risk factor, treating to a non-HDL-C goal of <100 mg/dL (LDL-C of <70 mg/dL) is considered a therapeutic option. 03/17/2023 7:48 AM CDT 03/17/2023 7:50 AM CDT Narrative [facility] - 03/18/2023 3:25 AM CDT FASTING:YES FASTING: YES us Aminta Han MD LAB BLOOD ORDERABLES Final Re sult [facility] Organization Address City/State/ZIP Co de Phone Number [facility] [address] [place] [address] from Last 3 Months or Most Recently Relevant to Health Maintenance Additional Health Concerns Active Problems Noted Date Diagnosed Date Autogenerated Problem 07/12/2025 [employer] [place] [employer] [place] [employer] [place] Care Teams Director Agricultural Services Relationship Specialty Start Date End Date Rosa Linder DO PCP - General Family Medicine 03/04/22 Eron Valiente MD [address] DEPT OPHTHALMOLOGY[address] [address] Surgeon Ophthalmology 08/15/25
--- OUTSIDE RECORDS SUMMARY | 2025-08-19 01:26 | XMS_ITS | Encounter Summary ---
Author Organization [facility] Address [address] [place] [address] Phone Care Team Providers Care Division Merchandise Manager Name Role Phone Rosa Linder DO Primary Care Provider [phone] Eron Valiente MD Unavailable [phone] Encounter Details Date Type Department Care Team (Latest Contact Info) Description 10/12/2024 Orders Only [place] IM EML Scanning, Provider Social History Tobacco Use Types Packs/Day Years Used Date Smoking Tobacco: Former Smokeless Tobacco: Never Sex and Gender Information Value Date Recorded Sex Assigned at Not on file 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 Gender Identity Not on file Sexual Orientation Not on file documented as of this encounter Plan of Treatment Not on file documented as of this encounter Procedures Procedure Name Priority Date/Time Associated Diagnosis Comments SCAN - LABS 10/12/2024 documented in this encounter Results * SCAN - LABS (10/12/2024) us Provider Scanning Final Result documented in this encounter Visit Diagnoses Not on filedocumented in this encounter Care Teams Division Merchandise Manager Relationship Specialty Start Date End Date Rosa Linder DO PCP - General Family Medicine 03/04/22 Eron Valiente MD [address] DEPT OPHTHALMOLOGY, [facility] [address] [place] [address] Surgeon Ophthalmology 08/15/25 documented as of this encounter
--- OUTSIDE RECORDS SUMMARY | 2025-08-19 01:26 | XMS_ITS | Encounter Summary ---
Author Organization [facility] Address [address] [place] [address] Phone Care Team Providers Care Helix Coil Winder Name Role Phone Rosa Linder DO Primary Care Provider [phone] Eron Valiente MD Unavailable [phone] Encounter Details Date Type Department Care Team (Late st Contact Info) Description 06/29/2022 Orders Only [place] IM RHEUMATOLOGY Scanning, Provider Social History Tobacco Use Types Packs/Day Years Used Date Smoking Tobacco: Former Smokeless Tobacco: Never Sex and Gender Information Value Date Recorded Sex Assigned at Not on file 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 Gender Identity Not on file Sexual Orientation Not on file documented as of this encounter Plan of Treatment Not on file documented as of this encounter Procedures Procedure Name Priority Date/Time Associated Diagnosis Comments SCAN - LABS 06/29/2022 documented in this encounter Results * SCAN - LABS (06/29/2022) us Provider Scanning Final Result documented in this encounter Visit Diagnoses Not on filedocumented in this encounter Care Teams Helix Coil Winder Relationship Specialty Start Date End Date Rosa Linder DO PCP - General Family Medicine 03/04/22 Eron Valiente MD [address] DEPT OPHTHALMOLOGY, [facility] [address] [place] [address] Surgeon Ophthalmology 08/15/25 documented as of this encounter
[2025-08-19 06:40] VITALS: BP 139/66; PULSE 73; RESP 18; TEMP 36.2; O2SAT 98; BMI 32.9
--- NOTE | 2025-08-19 06:56 | WPDANESEPPF ---
Anes - Initial Pre Proc Eval Procedure: Operation Date: 08/19/25 08:00 Proposed Procedures p EGD & Diagnostic Colonoscopy - Ralph Steward MD Date/Time: 08/19/25 06:56 Surgeon: Ralph Steward MD Pre Op Diagnosis: Non-celiac gluten sensitivity Patient Data Age: 65 Gender: M Height: 1.85 m Weight: 113.2 kg Last Vital Signs Temp 36.2 C L 08/19/25 06:40 Pulse 73 08/19/25 06:40 Resp 18 08/19/25 06:40 BP 139/66 08/19/25 06:40 Pulse Ox 98 08/19/25 06:40 O2 Del Method Room Air 08/19/25 06:40 Allergies Allergy/AdvReac Type Severity Reaction Status Date / Time gluten AdvReac Severe Diarrhea Uncoded 08/02/25 10:34 Home Medications ?Medication ?Instructions ?Recorded ?Confirmed ?Type alpha lipoic acid 200 mg capsule 200 mg PO BID 11/01/19 08/19/25 History aspirin 81 mg tablet,delayed 81 mg PO DAILY 11/01/19 08/19/25 History release blood sugar diagnostic (Contour 07/30/21 08/11/25 History Next Test Strips) insulin lispro 100 unit/mL See Rx Instructions subcut 07/30/21 08/19/25 History subcutaneous solution (Humalog USEASDIRECTD U-100 Insulin) mecobalamin (vitamin B12) 1,000 500 mcg PO DAILY 07/30/21 08/19/25 History mcg chewable tablet cholecalciferol (vitamin D3) 25 25 mcg PO DAILY 05/05/23 08/19/25 History mcg (1,000 unit) capsule ramipril 10 mg capsule 10 mg PO BID #180 caps 04/04/25 08/19/25 Rx potassium chloride 20 mEq 20 meq PO DAILY #90 tabs 05/30/25 08/19/25 Rx tablet,extended release (K-Tab) ezetimibe 10 mg-simvastatin 20 mg See Rx Instructions .Route 07/04/25 08/19/25 Rx tablet .COMPLEX #90 tabs levothyroxine 150 mcg capsule 150 mcg PO DAILY #90 caps 08/04/25 08/19/25 Rx levothyroxine 150 mcg tablet 150 mcg PO DAILY #90 tabs 08/08/25 08/11/25 Rx (Synthroid) Patient hx anesthesia problems: none Family hx anesthesia problems: none Results Review: All pre-operative results and documents have been reviewed as part of the pre-operative evaluation. COUNT INCLUDES THE [facility] Past Medical History Medical History Morbid obesity Hepatitis C antibody test negative (08/04/21) CKD (chronic kidney disease) Dyslipidemia Hypertension Diabetes Family History Family History Mother Family history of elevated blood lipids Other Family history of cardiovascular disease Family history of hypercholesterolemia Hypertension Social History Social History Smoking packs per day: 0.5 Smoking cigarettes per day: 10.0 Years smoked: 25 Smoking pack-years: 12.50 Smoking status: Former smoker Tobacco type: cigarettes Smoking end date: 10/13/02 Alcohol intake: current Drinks per week: 2 Alcohol use details: Varies Substance use: never Substance use type: does not use Lack of Transportation: No Lack of Food: Never True Current Housing: I Have Housing Concerned About Future Housing: No Difficulty Paying Gas/Electric Bills: No Difficulty Paying for Meds: No Currently Unemployed: No Education: Bachelor's Degree Difficulty w/ Childcare or Family Care: No Living arrangements: with family Additional living arrangements comments: with sp Spiritual care concerns: No Anes - Eval Final PreProcedure Day of Procedure 08/19/25 06:56 Patient weight: obese Heart: regular rate and rhythm Lungs: clear to auscultation Airway: Mallampati scale class II Neurological: alert and oriented Last oral intake: >/= 8 hours ASA classification: III Emergent: no Anesthetic plan: proceed Anesthesia type and monitoring: general GIVS and standard monitoring Results Review: All pre-operative results and documents have been reviewed as part of the pre-operative evaluation. Informed Consent: The patient's anesthetic plan and its attendant risks and benefits were discussed with the patient/family/POA. Questions were solicited and answers provided to the satisfaction of the patient/family/POA.
[2025-08-19] MEDS: LACTATED RINGERS 1,000 ML 150 ML IV CONT (07:12)
--- NOTE | 2025-08-19 07:57 | WPDHPUPDATE1 ---
History and Physical Update Update Date/Time: 08/19/25 07:57 History and Physical has been reviewed, including an updated exam of the patient. There are NO changes in the patient's condition. Risks, benefits, and alternatives have been discussed and questions answered. Patient agrees to proceed with procedure.
--- NOTE | 2025-08-19 08:03 | S_PTH ---
PATIENT: Bashir Dodson LOC: [facility] Sainz#:[id number] AGE/SX: 65/M ROOM: RE08/19/[address]: Ralph Steward MD : 1960 BED: DIS: 08/19/2025 SPEC #: [id number] RECD: 08/19/25 10:07 STATUS: EDU WEINSTEIN #: [id number] ZAINA: 08/19/25 08:[address]: Ralph Steward DEPT: [facility] Surgical RECD BY: Zofia Rico ENTERED: 08/19/25 10:08 SP TYPE: Surgical OTHR DR: Rosa Linder DO Tissues: A - Gastric Biopsy B - Small Bowel Bx C - Colon Biopsy Procedures: Hematoxylin and Eosin Stain Gross and Microscopic Level 4
--- NOTE | 2025-08-19 08:04 | SUR.OPER ---
EGD:[id number] Colon: [id number]
[2025-08-19 08:20] VITALS: BP 113/50; PULSE 83; RESP 18; O2SAT 99
[2025-08-19 08:30] VITALS: PULSE 77; RESP 18; O2SAT 99
[2025-08-19 08:40] VITALS: PULSE 78; RESP 20; O2SAT 100
== END 2025-08-19 08:49 | disposition home or self-care (01) ==
PROVIDERS: PCP Family Medicine; Referring Provider Nurse Practitioner; Visit Provider Internal Medicine Gastroenterology
PROC: 0DJ08ZZ Inspection of Upper Intestinal Tract, Via Natural or Artificial Opening Endoscopic (ICD-10-PCS; CPT 45378; principal; 2025-08-19 08:00)
DX: K64.8 Other hemorrhoids (principal); K57.30 Diverticulosis of large intestine without perforation or abscess without bleeding; K52.832 Lymphocytic colitis; K29.50 Unspecified chronic gastritis without bleeding; E78.5 Hyperlipidemia, unspecified; E11.22 Type 2 diabetes mellitus with diabetic chronic kidney disease; I12.9 Hypertensive chronic kidney disease with stage 1 through stage 4 chronic kidney disease, or unspecified chronic kidney disease; N18.9 Chronic kidney disease, unspecified; K90.41 Non-celiac gluten sensitivity; E66.9 Obesity, unspecified; Z68.32 Body mass index [BMI] 32.0-32.9, adult; Z79.82 Long term (current) use of aspirin; Z79.4 Long term (current) use of insulin; Z87.891 Personal history of nicotine dependence; Z83.79 Family history of other diseases of the digestive system; Z82.49 Family history of ischemic heart disease and other diseases of the circulatory system
CPT/HCPCS: 43239; 45380; 82948; 88305; J2003; J2704; J7120